=== PATIENT | male | born 1985 | race Caucasian/White ===

== ENCOUNTER 2016-12-25 21:16 | Emergency (ER) | payer OTHER ==
[2016-12-25] MEDS ORDERED: ONDANSETRON ODT 4 MG TAB.RAPDIS ONE (21:44)
--- NOTE | 2016-12-25 22:12 | ER PHYSICIAN DOCUMENTATION ---
Physician Documentation [facility] Name:Angel Murray Age:31 yrs Sex:Male :1985 Arrival Date:12/25/2016 Time:21:16 Bed1 Private MD: Salo Salmon Disposition: 12/25/16 21:47 Discharged to Home/Self Care. Impression: Nausea. - Condition is Good. - Discharge Instructions: Abuse, Cannabis - MARIJUANA ABUSE. - Medical Reconciliation form form. - Follow up: Emergency Department; When: As needed; Reason: Worsening of condition. - Problem is new. - Symptoms have improved. HPI: 12/25 21:47 This 31 yrs old Male presents to ER via Walk In with complaints of Dizziness. sc 21:47 The patient presents with lightheadedness. Onset: The symptom(s)/episode began/occurred sc 2 hour(s) ago. Context: after marijuana edibles. Modifying factors: The symptoms are alleviated by nothing. Associated signs and symptoms: Pertinent positives: fatigue, nausea, . Severity of symptoms: At their worst the symptoms were moderate. Historical: - Allergies: No known drug Allergies; - Home Meds: 1. None - PMHx: None; - PSHx: None; - Tetanus: < 10 years. - Ebola Screening: : Patient negative for fever greater than or equal to 101.5 degrees Fahrenheit, and additional compatible Ebola Virus Disease symptoms. Patient denies exposure to infectious person. Patient denies travel to an Ebola-affected area in the 21 days before illness onset. No symptoms or risks identified at this time. . - Immunization history: Flu Vaccine < 1 year. - Social history: Smoking status: Patient states was never smoker of tobacco. Patient uses alcohol occasionally. street drugs, marijuana. ROS: 21:48 Eyes: Negative for injury, pain, redness, and discharge. sc ENT: Negative for injury, pain, and discharge. Neck: Negative for injury, pain, and swelling. Cardiovascular: Negative for chest pain, palpitations, and edema. Respiratory: Negative for shortness of breath, cough, wheezing, and pleuritic chest pain. Abdomen/GI: Negative for abdominal pain, nausea, vomiting, diarrhea, and constipation. Back: Negative for injury and pain. MS/Extremity: Negative for injury and deformity. 21:48 Skin: Negative for injury, rash, and discoloration. sc 21:48 Constitutional: Positive for fatigue. 21:48 Neuro: Positive for dizziness. Exam: Head/Face: Normocephalic, atraumatic. Eyes: Pupils equal round and reactive to light, extra-ocular motions intact. Lids and lashes normal. Conjunctiva and sclera are non-icteric and not injected. Cornea within normal limits. Periorbital areas with no swelling, redness, or edema. ENT: Nares patent. No nasal discharge, no septal abnormalities noted. Tympanic membranes are normal and external auditory canals are clear. Oropharynx with no redness, swelling, or masses, exudates, or evidence of obstruction, uvula midline. Mucous membranes moist. Neck: Trachea midline, no thyromegaly or masses palpated, and no cervical lymphadenopathy. Supple, full range of motion without nuchal rigidity, or vertebral point tenderness. No meningismus. Chest/axilla: Normal chest wall appearance and motion. Nontender with no deformity. No lesions are appreciated. Cardiovascular: Regular rate and rhythm with a normal S1 and S2. No gallops, murmurs, or rubs. Normal PMI, no JVD. No pulse deficits. Respiratory: Lungs have equal breath sounds bilaterally, clear to auscultation and percussion. No rales, rhonchi or wheezes noted. No increased work of breathing, no retractions or nasal flaring. Abdomen/GI: Soft, non-tender, with normal bowel sounds. No distension or tympany. No guarding or rebound. No evidence of tenderness throughout. Back: No spinal tenderness. No costovertebral tenderness. Full range of motion. Skin: Warm, dry with normal turgor. Normal color with no rashes, no lesions, and no evidence of cellulitis. 21:49 Neuro: Awake and alert, GCS 15, oriented to person, place, time, and situation. sc Cranial nerves II-XII grossly intact. Motor strength 5/5 in all extremities. Sensory grossly intact. Cerebellar exam normal. Normal gait. 21:49 Constitutional: The patient appears lethargic. Vital Signs: 21:25 BP 111 / 72 LA Sitting (auto/reg); Pulse 74 LA; Resp 16 S; Temp 97.9(O); Pulse Ox 95% em3 on R/A; Weight 95.25 kg (R); Height 6 ft. 0 in. (182.88 cm) (R); Pain 0/10; 22:12 BP 115 / 62; Pulse 70; Resp 14; Pulse Ox 97% on R/A; Pain 0/10; mk2 21:25 Body Mass Index 28.48 (95.25 kg, 182.88 cm) em3 MDM: 21:[address] 21:49 Differential diagnosis: idiopathic dizziness, mj. Data reviewed: vital signs, nurses ct notes, and as a result, I will continue to observe the patient. ED course: Resolved after zofran.. Dispensed Medications: 21:38 Drug: Zofran 4 mg; Route: PO; mk2 22:11 Follow up: Response: No adverse reaction mk2 Signatures: Salo Hayes MD MD ct Es Lockhart RN RN mk2
--- NOTE | 2016-12-25 22:12 | ER NURSING DOCUMENTATION ---
Nurse's Notes [facility] Name:Angel Murray Age:31 yrs Sex:Male :1985 Arrival Date:12/25/2016 Time:21:16 Bed1 Private MD: Diagnosis:Nausea Presentation: 12/25 21:23 Acuity: [place] 3 [facility] 21:33 Presenting complaint: Patient states: Pt states he did an edible and had a cocktail at 2 1730 and now he feels dizzy and unstable. Pt denies headache and has no neuro deficit. Pt admits to slight nausea. no vomiting. Transition of care: Home. Care prior to arrival: None. 21:33 Acuity: [place] 4 2 21:33 Method Of Arrival: Walk In [facility] Triage Assessment: 21:35 General: Appears in no apparent distress, Behavior is drowsy, flat. Pain: Denies pain. 2 EENT: Eyes equal and reactive. Neuro: No deficits noted. Cardiovascular: Heart tones S1 S2. Respiratory: Breath sounds are clear bilaterally. Derm: No deficits noted. Historical: - Allergies: No known drug Allergies; - Home Meds: 1. None - PMHx: None; - PSHx: None; - Tetanus: < 10 years. - Ebola Screening: : Patient negative for fever greater than or equal to 101.5 degrees Fahrenheit, and additional compatible Ebola Virus Disease symptoms. Patient denies exposure to infectious person. Patient denies travel to an Ebola-affected area in the 21 days before illness onset. No symptoms or risks identified at this time. . - Immunization history: Flu Vaccine < 1 year. - Social history: Smoking status: Patient states was never smoker of tobacco. Patient uses alcohol occasionally. street drugs, marijuana. Screenin:36 Infectious Disease Risk None. Abuse screen: Denies threats or abuse. Nutritional [facility] screening: No deficits noted. Assessment: 21:36 See Triage Assessment done by same RN. [facility] Vital Signs: 21:25 BP 111 / 72 LA Sitting (auto/reg); Pulse 74 LA; Resp 16 S; Temp 97.9(O); Pulse Ox 95% em3 on R/A; Weight 95.25 kg (R); Height 6 ft. 0 in. (182.88 cm) (R); Pain 0/10; 22:12 BP 115 / 62; Pulse 70; Resp 14; Pulse Ox 97% on R/A; Pain 0/10; mk2 21:25 Body Mass Index 28.48 (95.25 kg, 182.88 cm) em3 ED Course: 21:21 Patient arrived in ED. nm1 21:21 Salo Hayes MD is Attending Physician. mt 21:23 Es Lockhart, RN is Primary Nurse. mk2 21:23 Triage completed. mk2 21:26 Valuables Remains with patient Patient has correct armband on for positive em3 identification. Bed in low position. Call light in reach. Side rails up X2. 21:38 PO fluids given. mk2 Administered Medications: 21:38 Drug: Zofran 4 mg; Route: PO; mk2 22:11 Follow up: Response: No adverse reaction 2 Outcome: 21:47 Discharge ordered by . mt 22:12 Discharged to home ambulatory. mk2 22:12 Condition: good 22:12 Discharge instructions given to patient, Instructed on discharge instructions, follow up and referral plans. 22:12 Patient left the ED. 2 12/26 16:51 Discharge F/U Call: Unable to reach: left voicemail: samuel Signatures: Gloria Aden RN RN Salo Guerra MD MD mt Es Lockhart, TRAE RN [facility] David Cardona 3 Kimi Beckford ma1
== END 2016-12-25 22:12 | disposition home or self-care (01) ==
LOC: ER 21:16 → EEVIPCON 21:16 → ER 22:12
DX: R11.0 Nausea (principal); R42 Dizziness and giddiness; F12.10 Cannabis abuse, uncomplicated; R53.83 Other fatigue
CPT/HCPCS: 99283